=== PATIENT | male | born 1985 | race African-American/Black ===

== ENCOUNTER 2020-11-06 11:52 | Emergency (ER) | payer SELFPAY ==
[~2020-11-06] VITALS: Ht 190.5 cm; Wt 109.0 kg
[2020-11-06 11:53] VITALS: BP 141/83
[2020-11-06] MEDS ORDERED: LORAZEPAM 0.5MG TABLET PO ONE (12:30)
== END 2020-11-06 13:00 | disposition home or self-care (01) ==
LOC: ER 11:52
DX: R45.0 Nervousness (principal); F12.90 Cannabis use, unspecified, uncomplicated; R03.0 Elevated blood-pressure reading, without diagnosis of hypertension
CPT/HCPCS: 99283